=== PATIENT | male | born 1980 | race Caucasian/White ===

== ENCOUNTER 2021-08-18 10:47 | Emergency (ER) | payer BC ==
[2021-08-18 11:28] LABS: Absolute Lymphocytes (CBC) 1.6 K/uL (0.7-4.9); Hematocrit 44.2 % (39.6-49.0); Lymphocytes % 16.6 % (15.3-44.8); MPV 8.1 fL (7.6-11.3); RBC Red Blood Cell Count 5.06 M/uL (4.33-5.43)
[2021-08-18 11:47] LABS: Potassium 3.8 mmol/L (3.5-5.1)
--- NOTE | 2021-08-18 11:55 | RAD REPORT ---
EXAM DESCRIPTION: Juan R Single View08/18/2021 11:17 am CLINICAL HISTORY: Chest pain COMPARISON: none FINDINGS: The lungs appear clear of acute infiltrate. The heart is normal size IMPRESSION: No acute abnormalities displayed
--- NOTE | 2021-08-18 12:47 | EDPHYS ---
Physician Documentation [facility] Name: Glen Maria Age: 41 yrs Sex: Male : 1980 Arrival Date: 08/18/2021 Time: 10:50 Bed 16 Private MD: ED Physician Carroll Mary HPI: 08/18 11:33 This 41 yrs old Male presents to ER via EMS with complaints of chest pain. rn 11:33 The patient or guardian reports chest pain that is located primarily in the substernal rn area. The pain does not radiate. Associated signs and symptoms: Pertinent negatives: abdominal pain, cough, diaphoresis, headache, palpitations, shortness of breath, syncope, vomiting. The chest pain is described as sharp, stabbing. Duration: The patient or guardian reports multiple episodes, that are intermittent. Modifying factors: The symptoms are alleviated by nothing. the symptoms are aggravated by nothing. Severity of pain: At its worst the pain was moderate in the emergency department the pain is unchanged. The patient has not experienced similar symptoms in the past. The patient has not recently seen a physician. Pt reports chest pain, left of sternum, non-radiating, worse with deep breath and movement of arms. NO trauma. No sob. No palpitations. Lasts for seconds to minutes. Took aspirin prior to coming in. . Historical: - Allergies: 10:53 No Known Allergies; [facility] - Home Meds: 10:53 None [Active]; [facility] - PMHx: 10:53 None; [facility] - Immunization history:: Adult Immunizations up to date, Client reports receiving the 2nd dose of the Covid vaccine. - Social history:: Smoking status: Patient reports the use of cigarette tobacco products. - Family history:: not pertinent. - Hospitalizations: : No recent hospitalization is reported. ROS: 11:33 Constitutional: Negative for fever, chills, and weight loss, Eyes: Negative for injury, rn pain, redness, and discharge, Neck: Negative for injury, pain, and swelling, Cardiovascular: Negative for palpitations, and edema, Respiratory: Negative for shortness of breath, cough, wheezing Abdomen/GI: Negative for abdominal pain, nausea, vomiting, diarrhea, and constipation, Back: Negative for injury and pain, MS/Extremity: Negative for injury and deformity, Skin: Negative for injury, rash, and discoloration, Neuro: Negative for headache, weakness, numbness, tingling, and seizure. Exam: 11:33 Constitutional: This is a well developed, well nourished patient who is awake, alert, rn and in no acute distress. Head/Face: Normocephalic, atraumatic. Eyes: Periorbital areas with no swelling, redness, or edema. Neck: Trachea midline, no masses palpated, and no cervical lymphadenopathy. Cardiovascular: Regular rate and rhythm. No pulse deficits. Respiratory: No increased work of breathing, no retractions or nasal flaring. Abdomen/GI: Soft, non-tender Skin: Warm, dry with normal turgor. Normal color with no rashes, no lesions, and no evidence of cellulitis. MS/ Extremity: Pulses equal, no cyanosis. Neurovascular intact. Full, normal range of motion. Equal circumference. Neuro: Awake and alert, GCS 15, oriented to person, place, time, and situation. Cranial nerves II-XII grossly intact. Motor strength 5/5 in all extremities. Sensory grossly intact. Cerebellar exam normal. Vital Signs: 10:50 BP 140 / 86; Pulse 76; Resp 18; Temp 97.6(O); Pulse Ox 100% ; Weight 106.59 kg; Height jh6 5 ft. 10 in. (177.80 cm); Pain 3/10; 12:29 BP 124 / 82; Pulse 63; Resp 18; Pulse Ox 95% on R/A; ph 13:28 BP 118 / 78; Pulse 64; Resp 16; Temp 97.8; Pulse Ox 97% on R/A; ph 10:50 Body Mass Index 33.72 (106.59 kg, 177.80 cm) 6 MDM: 10:56 Patient medically screened. rn 12:45 Differential diagnosis: acute myocardial infarction, anxiety, coronary artery disease rn costochondritis, pneumonia, pneumothorax, pulmonary embolus. 12:45 HEART Score: History: Slightly Suspicious (0), ECG: Normal (0), Age: < or = 45 years rn (0), Risk Factors: No Risk Factors Known (0), Troponin: < or = 1 x Normal Limit (0), Total Score = 0. Data reviewed: vital signs, nurses notes, lab test result(s), EKG, radiologic studies, plain films, and as a result, I will discharge patient. Counseling: I had a detailed discussion with the patient and/or guardian regarding: the historical points, exam findings, and any diagnostic results supporting the discharge/admit diagnosis, lab results, radiology results, the need for outpatient follow up, to return to the emergency department if symptoms worsen or persist or if there are any questions or concerns that arise at home. Special discussion: Based on the patient's history, exam, and Dx evaluation, there is no indication for emergent intervention or inpatient Tx. It is understood by the patient/guardian that if the Sx's persist or worsen they need to return immediately for re-evaluation. I discussed with the patient/guardian in detail that at this point there is no indication for admission to the hospital. It is understood, however, that if the symptoms persist or worsen the patient needs to return immediately for re-evaluation. 08/18 10:57 Order name: Basic Metabolic Panel; Complete Time: 11:58 08/18 10:57 Order name: CBC with Diff; Complete Time: rn 08/18 10:57 Order name: D-Dimer; Complete Time: : rn 08/18 10:57 Order name: NT PRO-BNP; Complete Time: 11:58 rn 08/18 10:57 Order name: Troponin HS; Complete Time: 11:58 rn 08/18 10:57 Order name: SARS-COV-2 RT PCR (Document "Date of Onset" if Symptomatic); Complete Time: rn 12:45 08/18 10:57 Order name: XRAY Chest (1 view); Complete Time: 11:58 rn 08/18 10:57 Order name: EKG; Complete Time: 10: rn 08/18 10:57 Order name: Cardiac monitoring; Complete Time: 11:39 rn 08/18 10:57 Order name: EKG - Nurse/Tech; Complete Time: 11:39 rn 08/18 10:57 Order name: IV Saline Lock; Complete Time: : rn 08/18 10:57 Order name: Labs collected and sent; Complete Time: : rn 08/18 10:57 Order name: O2 Per Protocol; Complete Time: 11:08 rn 08/18 10:57 Order name: O2 Sat Monitoring; Complete Time: 11:08 rn Administered Medications: No medications were administered Disposition Summary: 08/18/21 12:46 Discharge Ordered Location: Home rn Problem: new rn Symptoms: have improved rn Condition: Stable rn Diagnosis - Chest pain, unspecified rn Followup: rn - With: Private Physician - When: As needed - Reason: Recheck today's complaints, Re-evaluation by your physician Discharge Instructions: - Discharge Summary Sheet rn - Nonspecific Chest Pain, Adult rn - Pain Without a Known Cause rn Forms: - Medication Reconciliation Form rn - Thank You Letter rn - Antibiotic burner tender - Prescription Opioid Use rn - Work release form ph Signatures: Dispatcher [employer] Carroll Amaro MD MD rn Hastedt, Jennifer, RN RN jh6
--- NOTE | 2021-08-18 12:47 | ER ---
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 pain worse jh6 with l arm movement. asa 324mg given waitstaff captain. Coronavirus screen: Vaccine status: Patient reports receiving the 2nd dose of the covid vaccine. Ebola Screen: Patient negative for fever greater than or equal to 101.5 degrees Fahrenheit, and additional compatible Ebola Virus Disease symptoms Patient denies exposure to infectious person. Patient denies travel to an Ebola-affected area in the 21 days before illness onset. Initial Sepsis Screen: Does the patient meet any 2 criteria? No. Patient's initial sepsis screen is negative. Initial Sepsis Screen: Does the patient have a suspected source of infection? No. Patient's initial sepsis screen is negative. Risk Assessment: Do you want to hurt yourself or someone else? Patient reports no desire to harm self or others. Onset of symptoms was August 18, 2021. 10:50 Method Of Arrival: EMS: [facility] 10:50 Acuity: MALA 2 [facility] Historical: - Allergies: 10:53 No Known Allergies; [facility] - Home Meds: 10:53 None [Active]; [facility] - PMHx: 10:53 None; [facility] - Immunization history:: Adult Immunizations up to date, Client reports receiving the 2nd dose of the Covid vaccine. - Social history:: Smoking status: Patient reports the use of cigarette tobacco products. - Family history:: not pertinent. - Hospitalizations: : No recent hospitalization is reported. Screenin:08 Abuse screen: Denies threats or abuse. Denies injuries from another. Nutritional ph screening: No deficits noted. Tuberculosis screening: No symptoms or risk factors identified. Fall Risk None identified. Assessment: 11:22 General: Appears in no apparent distress. comfortable, Behavior is calm, cooperative, ph appropriate for age, Denies fever, feeling ill. Pain: Complains of pain in anterior aspect of left upper chest Pain does not radiate. Neuro: Level of Consciousness is awake, alert, obeys commands, Oriented to person, place, time, situation. Cardiovascular: Reports None Denies lightheadedness, nausea, shortness of breath, Capillary refill < 3 seconds in bilateral fingers Patient's skin is warm and dry. Respiratory: Airway is patent Respiratory effort is even, unlabored. Derm: Skin is intact, is healthy with good turgor, Skin is pink, warm \T\ dry. Musculoskeletal: Circulation, motion, and sensation intact. Range of motion: intact in all extremities. 12:29 Reassessment: Patient appears in no apparent distress at this time. Patient and/or ph family updated on plan of care and expected duration. Pain level reassessed. Patient is alert, oriented x 3, equal unlabored respirations, skin warm/dry/pink. 13:28 Reassessment: Patient appears in no apparent distress at this time. Patient and/or ph family updated on plan of care and expected duration. Pain level reassessed. Patient is alert, oriented x 3, equal unlabored respirations, skin warm/dry/pink. Vital Signs: 10:50 BP 140 / 86; Pulse 76; Resp 18; Temp 97.6(O); Pulse Ox 100% ; Weight 106.59 kg; Height jh6 5 ft. 10 in. (177.80 cm); Pain 3/10; 12:29 BP 124 / 82; Pulse 63; Resp 18; Pulse Ox 95% on R/A; ph 13:28 BP 118 / 78; Pulse 64; Resp 16; Temp 97.8; Pulse Ox 97% on R/A; ph 10:50 Body Mass Index 33.72 (106.59 kg, 177.80 cm) [facility] Vitals: 12:29 Cardiac Rhythm Assessment Regular. ph ED Course: 10:50 Patient arrived in ED. 6 10:53 Triage completed. [facility] 10:53 Arm band placed on left wrist. Patient placed in the treatment room, on a stretcher, on [facility] site monitor, on pulse oximetry. 10:56 Carroll Mary MD is Attending Physician. rn 11:07 Vale Vogel RN is Primary Nurse. ph 11:08 Patient has correct armband on for positive identification. Placed in gown. Bed in low ph position. Call light in reach. Side rails up X 1. Client placed on continuous cardiac and pulse oximetry monitoring. NIBP monitoring applied. Door closed. Noise minimized. Warm blanket given. 11:20 XRAY Chest (1 view) In Process Unspecified. EDMS 12:30 Maintain EMS IV. Dressing intact. Good blood return noted. Site clean \T\ dry. Gauge \T\ ph site: 180 LAC. IV is patent, with fluids infusing freely, with good blood return, Flushed left antecubital with 5 ml normal saline. 13:29 No provider procedures requiring assistance completed. IV discontinued, intact, ph bleeding controlled, No redness/swelling at site. Pressure dressing applied. Administered Medications: No medications were administered Medication: 11:08 VIS not applicable for this client. ph Outcome: 12:46 Discharge ordered by . rn 13:29 Discharged to home ambulatory. ph 13:29 Condition: good 13:29 Discharge instructions given to patient, Instructed on discharge instructions, follow up and referral plans. Demonstrated understanding of instructions, follow-up care. 13:52 Patient left the ED. iw Signatures: Dispatcher [employer] EDMS Ingrid Patel, RN RN iw Carroll Mary MD MD rn Hall, Patricia, RN RN Aury Rodriguez RN RN jh6
[2021-08-18 14:00] VITALS: BP 118/78; TEMP 97.8; O2SAT 97
--- NOTE | 2021-08-21 17:38 | EKG ---
Test Date: 2021-08-18 Test Time: 11:29:50 Spinal Surgeon: PH MEASUREMENT RESULTS: Intervals: Rate: 79 CA: 162 QRSD: 92 QT: 382 QTc: 438 [place]: P: 35 CA: 162 QRS: 19 T: 38 INTERPRETIVE STATEMENTS: Normal sinus rhythm with sinus arrhythmia Normal ECG No previous ECG available for comparison Electronically Signed On 08-21-21 17:32:12 CDT by Dayne Davison
== END 2021-08-18 13:52 | disposition home or self-care (01) ==
LOC: ER 10:47
DX: R07.9 Chest pain, unspecified (principal); Z20.822 Contact with and (suspected) exposure to COVID-19; Z72.0 Tobacco use
CPT/HCPCS: 93005; 85025; 80048; 36415; 85379; 84484; 83880; 71045; 99283; U0003